=== PATIENT | male | born 2000 | race Two or more races ===

== ENCOUNTER 2024-04-22 06:45 | Emergency (ER) | payer MEDICAID, SELFPAY ==
--- NOTE | 2024-04-22 06:52 | PD.EDMALE ---
ED Male Genitalurinary RME/HPI General Chief complaint: Urogenital-Male Stated complaint: Blood Urine Time Seen by Provider: 04/22/24 06:49 Arrival date/time: 04/22/24 06:45 RME / HPI RME / HPI Narrative: This section includes all my notes and documentations, including HPI, PE, and ED course.? Jarod Giron MD HPI: 23 year old male who was recently treated with antibiotics and promethazine for a sinus infection, otherwise no chronic medical history reported, presents to the ED for evaluation of dark red blood in urine this morning. Accompanied by discomfort and pain to his lower abdomen. Denies any history of similar symptoms. Denies fevers, chills, sweats, n/v, or painful urination. No other complaints. ROS: All negative except as documented in HPI. Physical Exam: General:? Alert and oriented.??No acute distress. Eyes:? Conjunctivae and lids clear.?? ENT:? No nasal congestion.?? Neck:? Supple.?? Lungs:? No respiratory distress.?? Abdomen:? Soft and nontender.?? Back: No CVA tenderness. Skin:? Warm and dry.?? Neuro:? Alert and oriented X 3.?? I reviewed all diagnostic test results. My review of the CT report shows a 2 mm left renal calculus. Blood tests and urine tests?unremarkable except hematuria. At this point, diagnoses include?kidney stone. Dispensed urine strainer and recommended conservative treatment. Based on my best medical judgment, made decision no further evaluation or treatment indicated at this time.? Patient understands and agrees to the discharge instructions customized and printed, see below. Discharge Instructions from Dr. Giron: --After evaluation, your symptoms are due to kidney stones. --Increase oral fluid to flush your kidneys.? Maintain clear urine. if it's dark or yellow then increase oral fluid.? If you don't do this, you won't pass it.? --Take Zofran as needed for nausea or vomiting. --Take Ketorolac/Toradol for pain control.? --Strain your urine so you can catch the stone when you pass it.? --See a private doctor on 04/25/2024. Take the stone with you for analysis because certain stones can be prevented.? Ask for a referral to see urologist. --Seek immediate medical care with fever over 100.4, persistent vomiting despite Zofran, intolerable pain, or with any concerns.?? Jarod Giron MD Related Data Previous Rx's ?Medication ?Instructions ?Recorded ibuprofen 600 mg tablet 600 mg PO Q8H PRN fever or pain 08/17/23 #20 tabs ketorolac 10 mg tablet 10 mg PO Q8H PRN pain 1 day #14 04/22/24 tabs ondansetron 4 mg disintegrating 4 mg PO TID PRN nausea and 04/22/24 tablet vomiting 5 days #10 tabs Allergies Allergy/AdvReac Type Severity Reaction Status Date / Time No Known Allergies Allergy Verified 08/17/23 08:29 Review of Systems Review of Systems Systems Reviewed: All systems reviewed, normal except as documented Past Medical History Social History SMOKING STATUS: Former smoker Course Quality Measures none Orders Category Date Time Status Miscellaneous Nursing Order NOW Care 04/22/24 08:[address] abdomen pelvis wo con Stat Exams 04/22/24 06:56 Completed CBC Stat Lab 04/22/24 07:29 Completed CMP [Comprehensive Metabolic Panel] Stat Lab 04/22/24 07:29 Completed Magnesium Stat Lab 04/22/24 07:29 Completed UA [Urinalysis] Stat Lab 04/22/24 07:02 Completed Vital Signs Vital signs: Vital Signs Temperature 98.7 F 04/22/24 06:53 Pulse Rate 97 04/22/24 06:53 Respiratory Rate 18 04/22/24 06:53 Blood Pressure 131/82 H 04/22/24 06:53 Pulse Oximetry (%) 98 04/22/24 06:53 Oxygen Delivery Method Room Air 04/22/24 06:53 Pulse ox is 98% on room air which is adequate. Urogenital - Male MDM Narrative MDM Narrative:: Amaya Montano am scribing for and in the presence of Dr. Giron. Patient data External records reviewed:: [facility] previous records (I reviewed ED visit from 08/17/23) Clinical information provided by:: patient Social determinants that could affect healthcare access:: none Patient has the following chronic illnesses:: No chronic medical hx How is presenting disease/condition affected by chronic disease/condition?: no chronic disease Evaluation data The following diagnostics were reviewed and interpreted by me:: lab results and radiology exam(s) Lab and/or radiology exams considered but not ordered:: None Interpretation Summary: Kidney stone Medications / Prescriptions Medications or Prescriptions considered but not ordered:: None Medication administrations:: None Consultations Consultation(s) initiated? (list below): No Diagnosis Urogenital Male Differential Diagnosis: urinary tract infection, urethritis, epididymitis and other (Kidney stone) Most likely diagnosis given after review of the tests above:: Kidney stone Admission Indicated Admission indicated?: not indicated Admission Request Was there a request for admission?: No Admission Attestation Admission request attestation: Admission criteria not met Disposition Plan Disposition Plan: Discharge Discharge Attestation Discharge Attestation: The patient and all family members were given an opportunity to ask questions and understood the discharge instructions. Discharge instructions specifically effects, indications for sooner follow up or return to the emergency department, and the expected course of current diagnosis. Patient condition: Stable Discharge Plan Plan Patient Disposition: HOME (Self Care) Prescriptions/Referrals Prescriptions/Med Rec: New ketorolac 10 mg tablet 10 mg PO Q8H PRN (Reason: pain) 1 Days Qty: 14 0RF ondansetron 4 mg tablet,disintegrating 4 mg PO TID PRN (Reason: nausea and vomiting) 5 Days Qty: 10 0RF No Action ibuprofen 600 mg tablet 600 mg PO Q8H PRN (Reason: fever or pain) Qty: 20 0RF Referrals: No Primary/Family,Physician [Primary Care Provider] - In 1 week Problem List Clinical Impression: Kidney stone Patient/Caregiver Discharge Instructions Discharge Activity: activity as tolerated Education Materials: ED Kidney Stone, Passed, ED Kidney Stone w/ Colic Additional Instructions: Discharge Instructions from Dr. Giron: --After evaluation, your symptoms are due to kidney stones. --Increase oral fluid to flush your kidneys.? Maintain clear urine. if it's dark or yellow then increase oral fluid.? If you don't do this, you won't pass it.? --Take Zofran as needed for nausea or vomiting. --Take Ketorolac/Toradol for pain control.? --Strain your urine so you can catch the stone when you pass it.? --See a private doctor on 04/25/2024. Take the stone with you for analysis because certain stones can be prevented.? Ask for a referral to see urologist. --Seek immediate medical care with fever over 100.4, persistent vomiting despite Zofran, intolerable pain, or with any concerns.?? Print Language: Angolan Stand Alone Forms: Rebecca Award Info., Work/School Release, Patient Portal Info Letter
[2024-04-22 06:53] VITALS: BP 131/82; PULSE 97; RESP 18; TEMP 37.1; O2SAT 98; BMI 20.3
--- NOTE | 2024-04-22 06:56 | XR_ITS ---
Examination: CT abdomen and pelvis without contrast. Coronal 3-D reconstructions. Sagittal 2-D reconstructions. Date and time of exam:April 22, 2024 0704 hrs. Indications: Onset hematuria and lower pelvic pain today CTDI: vol (mGy): 3.98 DLP: (mGycm): 178 Technique: Axial images of the abdomen have been obtained, 3 mm slice thickness Intravenous contrast material has not been administered. Low dose protocols were performed. One or more of the following dose reduction techniques were used; automated exposure control, adjustment of the mA and/or KV according to patient size, use of iterative reconstruction technique. Findings: Or splenic lesions No gallstones No pancreatic or adrenal mass 2 mm calculus lower pole left kidney, coronal image 74 No hydronephrosis or ureteral calculi Normal appendix No bowel obstruction Contracted urinary bladder No prostatomegaly The osseous structures are intact Impression: 2 mm nonobstructing lower pole left renal calculus
[2024-04-22 07:53] LABS: Collection Type, Urine Clean Catch
[2024-04-22 07:58] LABS: Basophils % (Auto) 0 % (0-2.5); Eosinophils % (Auto) 0 % (0-10); Hematocrit 44.5 % (41.0-53.0); Hemoglobin 15.1 g/dL (13.5-16.0); Immature Granulocytes % (Auto) 0 % (0-0); Immature Granulocytes Auto 0.02 Thou/mm3 (0.00-0.00); Lymphocytes # (Auto) 2.1 Thou/mm3 (1.0-4.8); Lymphocytes % (Auto) 35 % (10-50); Mean Corpuscular HGB Conc 33.9 g/dl (31.0-37.0); Mean Corpuscular Hemoglobin 30.6 pg (25.0-35.0); Mean Corpuscular Volume 90 fL (80-100); Monocytes # (Auto) 0.5 Thou/mm3 (0.0-0.8); Monocytes % (Auto) 8 % (0-12); Neutrophils # (Auto) 3.3 Thou/mm3 (1.8-7.7); Neutrophils % (Auto) 56 % (37-80); Nucleated Red Blood Cell % 0 /100 WBC (0); Platelet Count 239 Thou/mm3 (140-440); RDW Standard Deviation 40.9 fL (35.1-43.9); Red Blood Count 4.93 Miln/mm3 (4.50-5.90); White Blood Count 5.9 Thou/mm3 (3.8-10.6)
[2024-04-22 08:01] LABS: Amorphous Crystals,Urine Present (Absent); Bacteria,Urine Rare; Bilirubin,Urine Negative (Negative); Blood,Urine 3+ (Negative); Color,Urine Yellow (Lt Yel-Yel); Glucose, Urine Negative (Negative); Ketones,Urine 1+ (Negative); Leukocyte Esterase,Urine Negative (Negative); Nitrite,Urine Negative (Negative); Protein,Urine 1+ (Neg - Trace); RBC,Urine 6 /hpf (0-3); Specific Gravity,Urine 1.029 (1.001-1.035); Squamous Epithelial Cell,Urine < 1 /hpf (0-5); WBC,Urine 3 /hpf (0-5)
[2024-04-22 08:15] LABS: Alanine Aminotransferase 18 U/L (10-49); Albumin, Serum 5.3 gm/dL (3.5-5.0); Albumin/Globulin Ratio 2.2 (1.2-2.2); Alkaline Phosphatase 80 U/L (46-116); Anion Gap 7 (7-16); Aspartate Amino Transferase 20 U/L (0-34); BUN/Creatinine Ratio 15 Ratio (12-20); Bilirubin,Total 0.6 mg/dL (0.3-1.2); Blood Urea Nitrogen 12 mg/dL (9-23); Calcium 9.6 mg/dL (8.3-10.6); Calcium (Corrected) 9.6 mg/dL (8.5-10.1); Carbon Dioxide 30.4 mMol/L (20.0-31.0); Chloride 103 mMol/L (98-107); Creatinine (Component) 0.8 mg/dL (0.6-1.3); Estimated Creatinine Clearance 106.9 mL/min (>60); Globulin 2.4 gm/dL (2.3-3.5); Glucose 70 mg/dL (74-106); Magnesium 2.2 mg/dL (1.6-2.6); Osmolality,Calculated 277 (275-295); Potassium 3.9 mMol/L (3.4-5.1); Sodium 140 mMol/L (136-145); Total Protein 7.7 gm/dL (5.7-8.2); eGFR > 60 See Note
[2024-04-22 08:20] LABS: Clarity,Urine Hazy (Clear/Hazy)
== END 2024-04-22 09:01 | disposition home or self-care (01) ==
PROVIDERS: Emergency Provider Emergency Medicine
DX: N20.0 Calculus of kidney (principal)
CPT/HCPCS: 36415; 74176; 80053; 81001; 83735; 85025; 99284

== ENCOUNTER → 2024-08-12 | Outpatient (CLI) | payer MEDICAID, SELFPAY ==
--- NOTE | 2024-08-12 | XR_ITS ---
Examination: PA lateral chest 2 views TECHNIQUE: Upright PA lateral chest 2 views Exam date and time: August 12, 2024 1126 hours INDICATIONS: Coughing fever beginning 3 weeks ago. FINDINGS: Normal heart size Lungs are clear. The osseous structures are intact IMPRESSION: No active disease
== END | disposition home or self-care (01) ==
LOC: CDIM 10:33
PROVIDERS: PCP Physician Assistant; Referring Provider Physician Assistant; Visit Provider Physician Assistant
DX: R05.9 Cough, unspecified (principal); R50.9 Fever, unspecified
CPT/HCPCS: 71046